=== PATIENT | male | born 1960 | race Caucasian/White ===

== ENCOUNTER 2020-06-24 11:56 | Outpatient (REF) | payer BC, SELFPAY ==
--- NOTE | ~2020-06-24 | XR_ITS ---
EXAMINATION: XR CHEST CLINICAL INFORMATION: History renal mass. COMPARISON: Chest radiographs 06/25/2019, 11/30/2018 TECHNIQUE: Chest is imaged in frontal view and 2 lateral views for a total of 3 views. FINDINGS: The lungs are clear. There is no airspace opacity, mass, pleural reaction, or effusion. The heart is normal in size. The costophrenic sulci are clear. The hilar and mediastinal contours and bony structures are unremarkable. XR/XR chest 2V IMPRESSION: Unremarkable examination.
== END 2020-06-24 11:57 | disposition home or self-care (01) ==
LOC: HO.XRAY 11:56
PROVIDERS: PCP Internal Medicine; Visit Provider Urology
DX: N28.89 Other specified disorders of kidney and ureter (principal)
CPT/HCPCS: 71046

== ENCOUNTER → 2020-07-01 09:32 | Outpatient (BNVA) | payer BC, SELFPAY | PROVIDERS: PCP Internal Medicine; Visit Provider Urology | DX: Z13.89 Encounter for screening for other disorder (principal) ==

== ENCOUNTER 2021-01-27 09:54 | Outpatient (REF) | payer OTHER, SELFPAY ==
--- NOTE | ~2021-01-27 | US_ITS ---
EXAMINATION: US RETROPERITONEAL LIMITED (RENAL ONLY) CLINICAL INFORMATION: Calculus of kidney. COMPARISON: CT abdomen and pelvis 11/29/2019. Renal ultrasound 11/30/2018. Abdominal ultrasound 05/24/2017. TECHNIQUE: Real-time imaging of the kidneys. FINDINGS: RIGHT KIDNEY: 12.3 x 5.2 x 5.5 cm (SAG x AP x TRV). The kidney is normal in size, contour, and echogenicity. Renal cortical thickness is normal. No calculi or focal parenchymal lesions. No hydronephrosis. Redemonstration of an irregular hypoechoic focus within the lower pole of the right kidney measuring 1.7 x 1.3 x 1.4 cm, unchanged when compared to prior examinations and consistent with prior tumor ablation. No new renal parenchymal lesion. LEFT KIDNEY: 12.8 x 6.4 x 5.7 cm (SAG x AP x TRV). The kidney is normal in size, contour, and echogenicity. Renal cortical thickness is normal. No calculi or focal parenchymal lesions. No hydronephrosis. US/US renal BI IMPRESSION: No hydronephrosis or nephrolithiasis. Foci consistent with prior cryoablation redemonstrated at the lower pole of the right kidney, not significantly changed when compared to the prior CT. No new renal parenchymal lesion.
== END 2021-01-27 09:55 | disposition home or self-care (01) ==
LOC: HO.US 09:54
PROVIDERS: PCP Internal Medicine; Visit Provider Urology
DX: C64.9 Malignant neoplasm of unspecified kidney, except renal pelvis (principal); N20.0 Calculus of kidney
CPT/HCPCS: 76775

== ENCOUNTER → 2021-02-20 12:12 | Outpatient (BNVA) | payer OTHER, SELFPAY | PROVIDERS: Visit Provider Urology ==

== ENCOUNTER → 2021-08-27 09:19 | Outpatient (BNVA) | payer OTHER, SELFPAY | PROVIDERS: Visit Provider Urology | DX: Z13.89 Encounter for screening for other disorder (principal) ==

== ENCOUNTER 2022-04-09 14:55 | Outpatient (REF) | payer BC, SELFPAY ==
--- NOTE | ~2022-04-09 | US_ITS ---
EXAMINATION: US RETROPERITONEAL LIMITED (RENAL ONLY) CLINICAL INFORMATION: Malignant neoplasm of unspecified kidney, except renal pelvis. History of cryoablation. COMPARISON: Renal ultrasound 01/27/2021 and 11/30/2018. CT abdomen and pelvis 11/29/2019. TECHNIQUE: Real-time imaging of the kidneys. FINDINGS: RIGHT KIDNEY: 11.6 x 5.9 x 4.4 cm (SAG x AP x TRV). The kidney is normal in size, contour, and echogenicity. Renal cortical thickness is normal. No calculi or focal parenchymal lesions. No hydronephrosis. Hypoechoic area with shadowing in the lower pole, likely area of cryoablation. LEFT KIDNEY: 12.2 x 6.1 x 4.9 cm (SAG x AP x TRV). The kidney is normal in size, contour, and echogenicity. Renal cortical thickness is normal. No calculi or focal parenchymal lesions. No hydronephrosis. US/US renal BI IMPRESSION: 1. Hypoechoic area with shadowing in the lower pole of the right kidney likely area of cryoablation. Similar findings were seen on last ultrasound exam 01/27/2021. 2. The left kidney is unremarkable.
== END 2022-04-09 14:56 | disposition home or self-care (01) ==
LOC: HO.US 14:55
PROVIDERS: PCP Internal Medicine; Visit Provider Urology
DX: C64.9 Malignant neoplasm of unspecified kidney, except renal pelvis (principal)
CPT/HCPCS: 76775

== ENCOUNTER → 2022-05-04 11:04 | Outpatient (BNVA) | payer OTHER, SELFPAY | PROVIDERS: PCP Internal Medicine; Visit Provider Urology | DX: Z13.89 Encounter for screening for other disorder (principal) ==

== ENCOUNTER 2022-12-07 14:04 | Outpatient (AMB) | payer BC, SELFPAY ==
--- NOTE | 2022-12-07 14:05 | MHC.OFFVIS ---
Intake Intake Visit Reasons: MRI- follow up(SET) Intake Note: Patient is present for Telephone MRI Follow up Urology Med: none Antibiotic Allergy: None Blood Thinner: None [facility]acy[facility] Allergies No Known Allergies Allergy (Verified 12/07/22 14:05) HPI HPI Comments History of Present Illness Details Maximiliano PERLA is a very pleasant male. He is a patient of Dr Davis. He is seen for the following urologic conditions. - renal cancer - erectile dysfunction in setting of diabetes Telemedicine Evaluation 15 min Consultation [employer] Marisol Video attempted Five year imaging no evidence of recurrent disease Follow yearly with ultrasound Trial daily tadalafil - has been shown to drop HbA1c by a 0.2-0.3 Erectile dysfunction in setting of diabetes Progressive Declining quality erection Does have spontaneous erections Given associated diabetes would suggest daily tadalafil Comorbidities include diabetes, hypertension, dyslipidemia Renal lesion: Cryotherapy 08/24 Present for re-evaluation in progress for renal cancer The renal mass was diagnosed incidentally, during evaluation for, abdominal pain - 05/26/15. Imaging included 05/26 , a renal ultrasound, showing a solid mass, 1-2 cm in size, on the right 08/24 cryotherapy Prior treatment(s) included 08/24 cryotherapy Staging of initial cancer T1a. 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 Recent labs include 11/24 Cr 1.05 12/26 Cr 1.1, 07/28 1.1 Follow up imaging includes - 11/23 CT non enhancing 3cm scarring area, 11/24 , a renal ultrasound, normal. XR, normal, 06/28 CXR NAD - 11/25 , a CT (computed tomography) scan of the abdomen/pelvis - contrast no enhancement on scarring on bottom of right kidney - 06/29? chest x-ray normal, 02/26 renal ultrasound scarring of right kidney, - 04/29 renal ultrasound scarring consistent with cryotherapy - 11/28 MRI with contrast no evidence of enhancement Planned therapeutic plan- yearly imaging [facility] Medical History Malignant neoplasm of right kidney Renal mass Review of Systems Const All systems reviewed & are unremarkable except as noted in HPI and below Reports no additional complaints Resp Reports no additional complaints GI Reports no additional complaints Reports as per HPI Musc Reports no additional complaints Physical Exam Telemedicine evaluation Appropriate responses Regular breathing rate and rhythm HEENT Head: Yes normal to inspection Ears: hearing grossly normal bilaterally Eyes General: appearance normal, both eyes and all related structures Neck Neck: Yes normal visual inspection Chest Chest palpation & inspection: normal inspection of the chest Resp Effort & Inspection: normal respiratory effort and able to speak in complete sentences Assessment & Plan Assessment & Plan (1) Renal cancer: Comment: 2018 cryotherapy Code(s): C64.9 - Malignant neoplasm of unspecified kidney, except renal pelvis (2) Erectile dysfunction associated with type 2 diabetes mellitus: Code(s): E11.69 - Type 2 diabetes mellitus with other specified complication; N52.1 - Erectile dysfunction due to diseases classified elsewhere Plan Daily tadalafil Medications: New tadalafil 5 mg PO DAILY 90 days 90 tabs 1RF sexual activity E11.69 - Type 2 diabetes mellitus with other specified complication, N52.1 - Erectile dysfunction due to diseases classified elsewhere Patient Instructions: Imaging studies, laboratory and physical exam results were discussed and reviewed in detail. No major barriers to patient understanding were identified. An opportunity to ask questions regarding the treatment plan was provided. All questions were answered. The patient expressed understanding and agreement with the above treatment plan. The patient is aware they should contact our office by phone for worsening of their current condition or the appearance of new urologic symptoms. Compliance is encouraged with any medications and followup testing that is ordered. It is a privilege to participate in the urologic care of your patient. If you have any questions or concerns regarding treatment for the above conditions, or other urologic issues, please do not hesitate to contact me. The office telephone contact is [phone]. This note is constructed using voice recognition software. While every effort has been made to ensure accuracy teachers aide errors may have been included. Yours sincerely, Dr Mathieu Powell MD, [facility] - Urology Providers of Expert, Compassionate Care for the Genitourinary System Telehealth Telehealth Location of provider rendering services: practice address Location of patient: address on file Patient Identification confirmed using: Name, : Yes Telehealth method: video Patient verbally consented to treatment: Yes Patient verbally consented to billing insurance company: Yes Patient informed of any privacy concerns related to visit: Yes Coding Level of Care Code Tele Est Pt Level 4 (15219) Diagnoses Renal cancer C64.9 Erectile dysfunction associated with type 2 diabetes mellitus E11.69; N52.1
== END 2022-12-07 14:33 | disposition home or self-care (01) ==
LOC: HO.HUSH 14:04
PROVIDERS: PCP Internal Medicine; Visit Provider Urology
DX: E11.69 Type 2 diabetes mellitus with other specified complication (principal); N52.1 Erectile dysfunction due to diseases classified elsewhere; Z85.528 Personal history of other malignant neoplasm of kidney
CPT/HCPCS: 99214

== ENCOUNTER → 2022-12-07 14:04 | Outpatient (BNVA) | payer BC, SELFPAY | PROVIDERS: PCP Internal Medicine; Visit Provider Urology ==

== ENCOUNTER 2023-06-09 10:51 | Outpatient (AMB) | payer OTHER, SELFPAY ==
--- NOTE | 2023-06-09 10:51 | A.OFFVIS_ITS ---
Intake Intake Visit Reasons: 6M Med Review(Tadalafil) Intake Note: Patient presents today for a follow-up Meds- Tadalafil Allergies to Antibiotic- No Known Allergies Blood Thinner- None Billboard Poster Required: No Allergies No Known Allergies Allergy (Verified 06/09/23 10:53) HPI HPI Comments History of Present Illness Details Maximiliano PERLA is a very pleasant male. He is a patient of Dr Davis. He is seen for the following urologic conditions. - renal cancer - erectile dysfunction in setting of ayesha migel Telemedicine Evaluation 15 min Consultation [employer] Mar[employer] Video attempted Has partial response to 5 mg daily tadalafil. At 20 mg on demand. Discussed dose escalation for future visits. Three-month follow-up tele Erectile dysfunction in setting of diabetes Progressive Declining quality erection Does have spontaneous erections Given associated diabetes daily tadalafil Comorbidities include diabetes, hypertension, dyslipidemia Renal lesion: Cryotherapy 08/24 Present for re-evaluation in progress for renal cancer The renal mass was diagnosed incidentally, during evaluation for, abdominal pain - 05/26/15. Imaging included 05/26 , a renal ultrasound, showing a solid mass, 1-2 cm in size, on the right 08/24 cryotherapy Prior treatment(s) included 08/24 cryotherapy Staging of initial cancer T1a. 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 Recent labs include 11/24 Cr 1.05 12/26 Cr 1.1, 07/28 1.1 Follow up imaging includes - 11/23 CT non enhancing 3cm scarring area, 11/24 , a renal ultrasound, normal. XR, normal, 06/28 CXR NAD - 11/25 , a CT (computed tomography) scan of the abdomen/pelvis - contrast no enhancement on scarring on bottom of right kidney - 06/29? chest x-ray normal, 02/26 renal ultrasound scarring of right kidney, - 04/29 renal ultrasound scarring consistent with cryotherapy - 11/28 MRI with contrast no evidence of enhancement Planned therapeutic plan- yearly imaging [facility] Medical History Malignant neoplasm of right kidney Renal mass Review of Systems Const All systems reviewed & are unremarkable except as noted in HPI and below Reports no additional complaints Resp Reports no additional complaints GI Reports no additional complaints Reports as per HPI Musc Reports no additional complaints Physical Exam Telemedicine evaluation Appropriate responses Regular breathing rate and rhythm HEENT Head: Yes normal to inspection Ears: hearing grossly normal bilaterally Eyes General: appearance normal, both eyes and all related structures Neck Neck: Yes normal visual inspection Chest Chest palpation & inspection: normal inspection of the chest Resp Effort & Inspection: normal respiratory effort and able to speak in complete sentences Assessment & Plan Assessment & Plan (1) Erectile dysfunction associated with type 2 diabetes mellitus: Code(s): E11.69 - Type 2 diabetes mellitus with other specified complication; N52.1 - Erectile dysfunction due to diseases classified elsewhere (2) Renal cancer: Comment: 2018 cryotherapy Code(s): C64.9 - Malignant neoplasm of unspecified kidney, except renal pelvis Plan Three-month follow-up tele Add on demand tadalafil Medications: New tadalafil On demand medication take 60 minutes before intended activity 20 mg PO ONCE 30 days PRN 30 tabs 0RF sexual activity E11.69 - Type 2 diabetes mellitus with other specified complication, N52.1 - Erectile dysfunction due to diseases classified elsewhere Refilled tadalafil 5 mg PO DAILY 90 days 90 tabs 1RF sexual activity E11.69 - Type 2 diabetes mellitus with other specified complication, N52.1 - Erectile dysfunction due to diseases classified elsewhere Telehealth Telehealth Location of provider rendering services: practice address Location of patient: address on file Patient Identification confirmed using: Name, : Yes Telehealth method: voice only Patient verbally consented to treatment: Yes Patient verbally consented to billing insurance company: Yes Patient informed of any privacy concerns related to visit: Yes Coding Level of Care Code Tele Est Pt Level 4 (09049) Diagnoses Erectile dysfunction associated with type 2 diabetes mellitus E11.69; N52.1 Renal cancer C64.9
== END 2023-06-09 12:20 | disposition home or self-care (01) ==
LOC: HO.HUSH 10:51
PROVIDERS: PCP Internal Medicine; Visit Provider Urology
DX: E11.69 Type 2 diabetes mellitus with other specified complication (principal); N52.1 Erectile dysfunction due to diseases classified elsewhere; C64.9 Malignant neoplasm of unspecified kidney, except renal pelvis
CPT/HCPCS: 99214

== ENCOUNTER → 2023-06-09 10:51 | Outpatient (BNVA) | payer OTHER, SELFPAY | PROVIDERS: PCP Internal Medicine; Visit Provider Urology ==

== ENCOUNTER 2023-09-06 11:17 | Outpatient (AMB) | payer OTHER, SELFPAY ==
--- NOTE | 2023-09-06 11:18 | A.OFFVIS_ITS ---
Intake Visit Reasons: Med Review(Tadalafil) Intake Note: Patient is Present for Telephone Follow Up Med Review Urology Med: Tadalafil Antibiotic Allergy:None Blood Thinner: None Allergies No Known Allergies Allergy (Verified 09/06/23 11:20) Medication List - Last Reconciled 09/06/23 by Mathieu Powell MD atorvastatin 20 mg PO DAILY codeine-guaifenesin 10-100 mg/5 mL 5 - 10 mL PO Q4-6H PRN lisinopril 5 mg PO DAILY metformin mg PO metoprolol succinate ER 50 mg PO DAILY omeprazole 20 mg PO DAILY tadalafil 20 mg PO ONCE PRN 30 days tadalafil 5 mg (1/2 x 10 mg) PO DAILY 90 days valsartan 40 mg PO DAILY HPI Comments Details: Maximiliano PERLA is a very pleasant male. He is a patient of Dr Davis. He is seen for the following urologic conditions. - renal cancer - erectile dysfunction in setting of diabetes Telemedicine Evaluation 15 min Consultation [employer] Video attempted Has had increasing response to 5 mg daily with 20 mg on demand Will increase to 10 mg daily with 20mg on demand Three-month follow-up tele Erectile dysfunction in setting of diabetes Progressive Declining quality erection Does have spontaneous erections Given associated diabetes daily tadalafil Comorbidities include diabetes, hypertension, dyslipidemia Renal lesion: Cryotherapy 08/24 The renal mass was diagnosed incidentally, during evaluation for, abdominal pain - 05/26/15. Imaging included 05/26 , a renal ultrasound, showing a solid mass, 1-2 cm in size, on the right 08/24 cryotherapy Prior treatment(s) included 08/24 cryotherapy Staging of initial cancer T1a. 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 Recent labs include 11/24 Cr 1.05 12/26 Cr 1.1, 07/28 1.1 Follow up imaging includes - 11/23 CT non enhancing 3cm scarring area, 11/24 , a renal ultrasound, normal. XR, normal, 06/28 CXR NAD - 11/25 , a CT (computed tomography) scan of the abdomen/pelvis - contrast no enhancement on scarring on bottom of right kidney - 06/29? chest x-ray normal, 02/26 renal ultrasound scarring of right kidney, - 04/29 renal ultrasound scarring consistent with cryotherapy - 11/28 MRI with contrast no evidence of enhancement Planned therapeutic plan- yearly imaging [facility] Medical History Malignant neoplasm of right kidney Renal mass Telehealth Telehealth Telehealth Platform: [employer] Location of provider rendering services: practice address Location of patient: address on file Patient Identification confirmed using: Name, : Yes Telehealth method: video Patient verbally consented to treatment: Yes Patient verbally consented to billing insurance company: Yes Patient informed of any privacy concerns related to visit: Yes Minutes spent on Phone/Video with Pt.: 15 Assessment & Plan Assessment & Plan (1) Erectile dysfunction associated with type 2 diabetes mellitus: Code(s): E11.69 - Type 2 diabetes mellitus with other specified complication; N52.1 - Erectile dysfunction due to diseases classified elsewhere Category: Medical Plan Increased dose from 5 mg daily to 10 mg daily and remain with 20 mg on demand Medications: Changed From tadalafil 5 mg (1/2 x 10 mg) PO DAILY 90 days 90 tabs 1RF sexual activity E11.69 - Type 2 diabetes mellitus with other specified complication, N52.1 - Erectile dysfunction due to diseases classified elsewhere To tadalafil 10 mg PO DAILY 90 days 90 tabs 1RF sexual activity E11.69 - Type 2 diabetes mellitus with other specified complication, N52.1 - Erectile dysfunction due to diseases classified elsewhere From tadalafil 5 mg PO DAILY 90 days 90 tabs 1RF sexual activity E11.69 - Type 2 diabetes mellitus with other specified complication, N52.1 - Erectile dysfunction due to diseases classified elsewhere To tadalafil 5 mg (1/2 x 10 mg) PO DAILY 90 days 90 tabs 1RF sexual activity E11.69 - Type 2 diabetes mellitus with other specified complication, N52.1 - Erectile dysfunction due to diseases classified elsewhere Patient Instructions: Imaging studies, laboratory and physical exam results were discussed and reviewed in detail. No major barriers to patient understanding were identified. An opportunity to ask questions regarding the treatment plan was provided. All questions were answered. The patient expressed understanding and agreement with the above treatment plan. The patient is aware they should contact our office by phone for worsening of their current condition or the appearance of new urologic symptoms. Compliance is encouraged with any medications and followup testing that is ordered. It is a privilege to participate in the urologic care of your patient. If you have any questions or concerns regarding treatment for the above conditions, or other urologic issues, please do not hesitate to contact me. The office telephone contact is [phone]. This note is constructed using voice recognition software. While every effort has been made to ensure accuracy paint department supervisor errors may have been included. Yours sincerely, Dr Mathieu Powell MD, [facility] - Urology Providers of Expert, Compassionate Care for the Genitourinary System Coding Level of Care Code Tele Est Pt Level 4 (22358) Diagnoses Erectile dysfunction associated with type 2 diabetes mellitus E11.69; N52.1
== END 2023-09-06 12:56 | disposition home or self-care (01) ==
LOC: HO.HUSH 11:17
PROVIDERS: PCP Internal Medicine; Visit Provider Urology
DX: E11.69 Type 2 diabetes mellitus with other specified complication (principal); N52.1 Erectile dysfunction due to diseases classified elsewhere
CPT/HCPCS: 99213

== ENCOUNTER → 2023-09-06 11:17 | Outpatient (BNVA) | payer OTHER, SELFPAY | PROVIDERS: PCP Internal Medicine; Visit Provider Urology ==

== ENCOUNTER 2023-12-07 11:33 | Outpatient (AMB) | payer OTHER, SELFPAY ==
--- NOTE | 2023-12-07 11:28 | A.OFFVIS_ITS ---
Intake Visit Reasons: 3M Follow Up-Med Review Intake Note: Patient is Present for Telephone Follow Up For med review Urology Med: Tadalafil Antibiotic Allergy:None Blood Thinner:none Allergies No Known Allergies Allergy (Verified 12/07/23 11:35) Medication List - Last Reconciled 12/07/23 by Mathieu Powell MD atorvastatin 20 mg PO DAILY codeine-guaifenesin 10-100 mg/5 mL 5 - 10 mL PO Q4-6H PRN lisinopril 5 mg PO DAILY metformin mg PO metoprolol succinate ER 50 mg PO DAILY omeprazole 20 mg PO DAILY tadalafil 10 mg PO DAILY 90 days tadalafil 20 mg PO ONCE PRN 30 days valsartan 40 mg PO DAILY HPI Comments Details: Maximiliano PERLA is a very pleasant male. He is a patient of Dr Davis. He is seen for the following urologic conditions. - renal cancer - erectile dysfunction in setting of diabetes Telemedicine Evaluation 15 min Consultation [employer] Video attempted Good response to 10 mg daily with 20 mg on demand Would like to continue Six month follow-up Erectile dysfunction in setting of diabetes Progressive Declining quality erection Does have spontaneous erections Given associated diabetes daily tadalafil Comorbidities include diabetes, hypertension, dyslipidemia Renal lesion: Cryotherapy 08/24 The renal mass was diagnosed incidentally, during evaluation for, abdominal pain - 05/26/15. Imaging included 05/26 , a renal ultrasound, showing a solid mass, 1-2 cm in size, on the right 08/24 cryotherapy Prior treatment(s) included 08/24 cryotherapy Staging of initial cancer T1a. 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 Recent labs include 11/24 Cr 1.05 12/26 Cr 1.1, 07/28 1.1 Follow up imaging includes - 11/23 CT non enhancing 3cm scarring area, 11/24 , a renal ultrasound, normal. XR, normal, 06/28 CXR NAD - 11/25 , a CT (computed tomography) scan of the abdomen/pelvis - contrast no enhancement on scarring on bottom of right kidney - 06/29? chest x-ray normal, 02/26 renal ultrasound scarring of right kidney, - 04/29 renal ultrasound scarring consistent with cryotherapy - 11/28 MRI with contrast no evidence of enhancement Planned therapeutic plan- yearly imaging [facility] Medical History Malignant neoplasm of right kidney Renal mass Review of Systems Const All systems reviewed & are unremarkable except as noted in HPI and below Reports no additional complaints Resp Reports no additional complaints GI Reports no additional complaints Reports as per HPI Musc Reports no additional complaints Physical Exam Telemedicine evaluation Appropriate responses Regular breathing rate and rhythm HEENT Head: Yes normal to inspection Ears: hearing grossly normal bilaterally Eyes General: appearance normal, both eyes and all related structures Neck Neck: Yes normal visual inspection Chest Chest palpation & inspection: normal inspection of the chest Resp Effort & Inspection: normal respiratory effort and able to speak in complete sentences Telehealth Telehealth Telehealth Platform: [employer] Location of provider rendering services: practice address Location of patient: address on file Patient Identification confirmed using: Name, : Yes Telehealth method: video Patient verbally consented to treatment: Yes Patient verbally consented to billing insurance company: Yes Patient informed of any privacy concerns related to visit: Yes Minutes spent on Phone/Video with Pt.: 15 Assessment & Plan Assessment & Plan (1) Erectile dysfunction associated with type 2 diabetes mellitus: Code(s): E11.69 - Type 2 diabetes mellitus with other specified complication; N52.1 - Erectile dysfunction due to diseases classified elsewhere Category: Medical (2) Renal cancer: Comment: 2018 cryotherapy Code(s): C64.9 - Malignant neoplasm of unspecified kidney, except renal pelvis Category: Medical Plan Six month follow-up renal ultrasound Orders: Orders US renal BI 6 Months C64.9 - Malignant neoplasm of unspecified kidney, except renal pelvis Medications: Refilled tadalafil 10 mg PO DAILY 90 days 90 tabs 1RF sexual activity E11.69 - Type 2 diabetes mellitus with other specified complication, N52.1 - Erectile dysfunction due to diseases classified elsewhere Patient Instructions: Imaging studies, laboratory and physical exam results were discussed and reviewed in detail. No major barriers to patient understanding were identified. An opportunity to ask questions regarding the treatment plan was provided. All q uestions were answered. The patient expressed understanding and agreement with the above treatment plan. The patient is aware they should contact our office by phone for worsening of their current condition or the appearance of new urologic symptoms. Compliance is encouraged with any medications and followup testing that is ordered. It is a privilege to participate in the urologic care of your patient. If you have any questions or concerns regarding treatment for the above conditions, or other urologic issues, please do not hesitate to contact me. The office telephone contact is [phone]. This note is constructed using voice recognition software. While every effort has been made to ensure accuracy director intelligence analysis programs errors may have been included. Yours sincerely, Dr Mathieu Powell MD, [facility] - Urology Providers of Expert, Compassionate Care for the Genitourinary System Coding Level of Care Code Tele Est Pt Level 3 (27610) Diagnoses Erectile dysfunction associated with type 2 diabetes mellitus E11.69; N52.1 Renal cancer C64.9
== END 2023-12-07 11:54 | disposition home or self-care (01) ==
LOC: HO.HUSH 11:33
PROVIDERS: PCP Internal Medicine; Visit Provider Urology
DX: E11.69 Type 2 diabetes mellitus with other specified complication (principal); N52.1 Erectile dysfunction due to diseases classified elsewhere; C64.9 Malignant neoplasm of unspecified kidney, except renal pelvis
CPT/HCPCS: 99213

== ENCOUNTER → 2023-12-07 11:33 | Outpatient (BNVA) | payer OTHER, SELFPAY | PROVIDERS: PCP Internal Medicine; Visit Provider Urology ==

== ENCOUNTER 2024-05-23 11:14 | Outpatient (REF) | payer OTHER, SELFPAY ==
--- NOTE | ~2024-05-23 | US_ITS ---
EXAMINATION: US RETROPERITONEAL LIMITED (RENAL ONLY) CLINICAL INFORMATION: Malignant neoplasm of right kidney, status post cryoablation. COMPARISON: 04/09/2022, 01/27/2021. TECHNIQUE: Real-time imaging of the kidneys. FINDINGS: RIGHT KIDNEY: 11.7 x 6.2 x 5.3 cm (SAG x AP x TRV). The kidney is normal in size, contour, and echogenicity. Renal cortical thickness is normal. No calculi or focal parenchymal lesions. No hydronephrosis. Stable shadowing in the lower pole, in the region of prior ablation with a similar appearance to prior exams. LEFT KIDNEY: 12.1 x 6.1 x 4.8 cm (SAG x AP x TRV). The kidney is normal in size, contour, and echogenicity. Renal cortical thickness is normal. No calculi or focal parenchymal lesions. No hydronephrosis. US/US renal BI IMPRESSION: Stable examination. Area of shadowing in lower pole right kidney appears similar, in the region of cryoablation. Electronically signed by: Jimenez Almanza MD 05/24/2024 08:28 AM [facility]
== END 2024-05-23 11:15 | disposition home or self-care (01) ==
LOC: HO.US 11:14
PROVIDERS: PCP Internal Medicine; Visit Provider Urology
DX: C64.9 Malignant neoplasm of unspecified kidney, except renal pelvis (principal)
CPT/HCPCS: 76775

== ENCOUNTER → 2024-05-23 11:15 | Outpatient (BNV) | payer OTHER, SELFPAY | PROVIDERS: PCP Internal Medicine; Visit Provider Radiology Diagnostic Radiology | DX: C64.1 Malignant neoplasm of right kidney, except renal pelvis (principal) | CPT/HCPCS: 76775 ==

== ENCOUNTER 2024-06-07 10:24 | Outpatient (AMB) | payer OTHER, SELFPAY ==
--- NOTE | 2024-06-07 10:28 | MHC.OFFVIS ---
Intake Visit Reasons: 6m/US(set) Intake Note: Patient is present for 6M/US Urology Medication:TADALAFIL Antibiotic Allergy:NONE Blood Thinner:NONE Spike Driver Required: No Allergies No Known Allergies Allergy (Verified 06/07/24 10:29) HPI Comments Details: Maximiliano PERLA is a very pleasant male. He is a patient of Dr Davis. He is seen for the following urologic conditions. - renal cancer - erectile dysfunction in setting of diabetes Six-month follow-up Continued good response to 10 mg daily with 20 mg on demand Imaging stable Erectile dysfunction in setting of diabetes Progressive Declining quality erection Does have spontaneous erections Given associated diabetes daily tadalafil Comorbidities include diabetes, hypertension, dyslipidemia Renal lesion: Cryotherapy 08/24 The renal mass was diagnosed incidentally, during evaluation for, abdominal pain - 05/26/15. Imaging included 05/26 , a renal ultrasound, showing a solid mass, 1-2 cm in size, on the right 08/24 cryotherapy Prior treatment(s) included 08/24 cryotherapy Staging of initial cancer T1a. 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 Recent labs include 11/24 Cr 1.05 12/26 Cr 1.1, 07/28 1.1 Follow up imaging includes - 11/23 CT non enhancing 3cm scarring area, 11/24 , a renal ultrasound, normal. XR, normal, 06/28 CXR NAD - 11/25 , a CT (computed tomography) scan of the abdomen/pelvis - contrast no enhancement on scarring on bottom of right kidney - 06/29? chest x-ray normal, 02/26 renal ultrasound scarring of right kidney, - 04/29 renal ultrasound scarring consistent with cryotherapy - 11/28 MRI with contrast no evidence of enhancement Planned therapeutic plan- yearly imaging [facility] Medical History Malignant neoplasm of right kidney Renal mass Review of Systems Const Denies chills and Denies fever(s) Card Reports no additional complaints and Denies syncope Resp Denies cough GI Denies abdominal pain and Denies heartburn Reports as per HPI and Denies change in libido Neuro Denies syncope Psych Denies change in libido Endo Denies change in libido Physical Exam Const General: cooperative, healthy appearing, comfortable and no acute distress Orientation/consciousness: patient oriented x3 HEENT Face and sinus: Yes normal facial exam Mouth: moist mucous membranes Neck Neck: Yes normal visual inspection, Yes full ROM and Yes trachea midline Chest Chest palpation & inspection: normal inspection of the chest Resp Effort & Inspection: normal respiratory effort, able to speak in complete sentences and no respiratory distress GI Inspection: Yes normal to inspection Back/Spine/Pelvis Cervical Spine: normal cervical lordosis Thoracic/Lumbar Spine: thoracic and lumbar spine normal to inspection Skin General skin exam: no rashes or lesions noted Neuro General: patient oriented x3, gait normal, tone normal and moves all extremities Extrem General: Yes normal to inspection and Yes capillary refill normal Assessment & Plan Assessment & Plan (1) Renal cancer: Comment: 2018 cryotherapy Code(s): C64.9 - Malignant neoplasm of unspecified kidney, except renal pelvis Category: Medical (2) Erectile dysfunction associated with type 2 diabetes mellitus: Code(s): E11.69 - Type 2 diabetes mellitus with other specified complication; N52.1 - Erectile dysfunction due to diseases classified elsewhere Category: Medical Plan Six-month follow-up PSA Orders: Orders Prostate Specific Antigen 6 Months E11.69 - Type 2 diabetes mellitus with other specified complication, N52.1 - Erectile dysfunction due to diseases classified elsewhere Patient Instructions: This note is constructed using voice recognition software. While every effort has been made to ensure accuracy instructional media services technician errors may have been included. Imaging studies, laboratory and physical exam results were discussed and reviewed in detail. No major barriers to patient understanding were identified. An opportunity to ask questions regarding the treatment plan was provided. All questions were answered. The patient expressed understanding and agreement with the above treatment plan. The patient is aware they should contact our office by phone for worsening of their current condition or the appearance of new urologic symptoms. Compliance is encouraged with any medications and followup testing that is ordered. It is a privilege to participate in the urologic care of your patient. If you have any questions or concerns regarding treatment for the above conditions, or other urologic issues, please do not hesitate to contact me. The office telephone contact is [phone]. Sincerely, Dr Mathieu Powell MD, [facility] - Urology Compassionate Specialist Care for the Genitourinary System Coding Level of Care Code Est Pt Level 3 (89683) Diagnoses Renal cancer C64.9 Erectile dysfunction associated with type 2 diabetes mellitus E11.69; N52.1
--- OUTSIDE RECORDS SUMMARY | 2024-06-07 13:52 | XMS_ITS | Clinical Summary ---
Author Organization [facility] Address [address] [place] [address] Care Team Providers Care Medical Doctor Nuclear Medicine Name Role Phone Unavailable Primary Care Provider Unavailabl e Social History Tobacco Use Types Packs/Day Years Used Date Smoking Tobacco: Never Assessed Sex and Gender Information Value Date Recorded Sex Assigned at Not on file Legal Sex Male 5:30 PM EDT Gender Identity Not on file Sexual Orientation Not on file Plan of Treatment Health Maintenance Due Date Last Done Comments Hepatitis C Screening 1960 DTaP/Tdap/Td (1 - Tdap) 10/21/1977 Pneumococcal 50+ years (1 of 1 - PCV) 10/21/2009 Zoster (Shingrix) (1 of 2) 10/21/2009 COVID-19 Vaccine ( - 2023-2 5 season) 2024 Influenza (#1) 2024 RSV (1 - 1-dose 75+ series) 10/21/2034 HPV Vaccine Aged Out No longer eligi ble based on patient's age to complete this topic Hep A Aged Out No longer eligi ble based on patient's age to complete this topic Hep B Aged Out No longer eligi ble based on patient's age to complete this topic Hib Aged Out No longer eligi ble based on patient's age to complete this topic Meningococcal ACWY Aged Out No longer eligible based on patient's age to complete this topic Zoster (Zostavax) Discontinued
--- OUTSIDE RECORDS SUMMARY | 2024-06-07 13:53 | XMS_ITS | Clinical Summary ---
Author Organization [facility] Address [address] [place] [address] Care Team Providers Care Health Underwriter Name Role Phone Josemanuel Davis MD Primary Care Provider [phone] Allergies Active Allergy Reactions Criticality Noted Date Comments Apple 01/25/2022 Grapefruit Extract 01/25/2022 Grapefruit fruit Tree Pollen-Black [place] 01/25/2022 WALNUTS Medications Medication Sig Dispensed Refills Start Date End Date Status aspirin 81 mg EC tablet Take 81 mg by mouth daily. Active atorvastatin (LIPITOR) 20 mg tablet Take 20 mg by mouth daily. Active cholecalciferol (VITAMIN D-3) 25 mcg (1,000 unit) capsule Take by mouth daily. Active metFORMIN (GLUCOPHAGE) 500 mg tablet Take 2 Tablets by mouth 2 times daily (with meals). Active metoprolol succinate (TOPROL-XL) 50 mg 24 hr tablet Take 50 mg by mouth daily. Active omeprazole (PriLOSEC) [address] capsule Take 20 mg by mouth daily. Active tadalafiL (CIALIS) 10 mg tablet Take 1 Tablet by mouth as needed. Active valsartan (DIOVAN) 40 mg tablet Take 40 mg by mouth daily. Active Active Problems Problem Noted Date Diagnosed Date Class 1 obesity with body ma ss index (BMI) of 33.0 to 33.9 in adult 03/05/2024 Rectus diastasis 01/24/2024 Ventral hernia without obstruction or gangrene 0 01/24/2024 Snoring 01/25/2022 Overview (03/05/2024): Last Assessment & Plan: He does snore he could have sleep apnea I discussed with him about proceeding with sleep test. I did discuss some, possible long-term effects of untreated sleep apnea. He is agreeable I did place an order for this. Sinus tachycardia 11/25/2021 Overview (03/05/2024): Last Assessment & Plan: The exact etiology of his tachycardia is not clear. Not clear if this was sinus tach or although we did have an ECG done with Dr. Davis and his heart rate was 106 and otherwise was normal. He did have a Holter monitor done.This demonstrated that the average heart rate over 24 hours was 89 bpm with a rate range of 57 to 135 bpm. No ventricular ectopy was noted. Supraventricular ectopy noted consisting of 2 atrial pairs and 45 isolated premature atrial beats. Total time in sinus tachycardia was 6 hours and 24 minutes. He did have a stress test in May 2020 where he exercised for over 6 minutes to greater than 100% of his mph. That time he had no chest pain or ECG changes consistent with ischemia. It is not clear as the etiology of the sinus tachycardia. His hemoglobin is normal. He does not have congestive failure. He did have an echocardiogram with a normal LV systolic function and normal diastolic function no significant valvular disease. TSH was normal. I do not believe he has a pheochromocytoma. He drinks 1 cup of coffee does not take any medications known to cause tachycardia although he states omeprazole was reported to have a tachycardia. He does snore and he could have sleep apnea. This point the heart rate is doing better and he is on the current dose of his metoprolol I would continue with this. I did tell though if he started having exertional symptoms, I described to him to call. I did tell if he any discomforts in his chest that lasts for 15 minutes to call 911. Encounters Date Type Department Care Team Description 04/13/2024 11:00 AM EST Office Visit General Surgery - [address] [place] [address] Salazar Mcelroy MD Ventral hernia without obstruction or gangrene (Primary Dx) from Last 3 Months Surgical History Surgery Date Site/Laterality Comments HERNIA REPAIR PROCEDURE: [place] REPAIR FIRST ABDOMINAL WALL HERNIA Family History Medical History Relation Name Comments Other: afib Father Other: mitral valve clip Father Other: afib Mother Relation Name Status Comments Father Mother Social History Tobacco Use Types Packs/Day Years Used Date Smoking Tobacco: Never Smokeless Tobacco: Never Alcohol Use Standard Drinks/Week Comments Yes 0 (1 standard drink = 0.6 oz pur e alcohol) Sex and Gender Information Value Date Recorded Sex Assigned at Not on file Gender Identity Not on file Sexual Orientation Not on file Job Start Date Occupation Industry Not on file Not on file Not on file Obstetrics History Last Filed Vital Signs Vital Sign Reading Time Taken Comments Blood Pressure 109/71 04/13/2024 11:14 AM EST Pulse 79 04/13/2024 11:14 AM EST Temperature - - Respiratory Rate - - Oxygen Saturation - - Inhaled Oxygen Concentration - - Weight 99.6 kg (219 lb 8 oz) 04/13/2024 11:14 AM EST Height 172.7 cm (5' 8 ) 04/13/2024 11:14 AM EST Body Mass Index 33.37 04/13/2024 11:14 AM EST Plan of Treatment Health Maintenance Due Date Last Done Comments Cholesterol Screening (Lipid Panel) 04/18/2022 Colorectal Cancer Screening: Colonoscopy 04/18/2022 Depression Screening 04/18/2022 HIV Screening 04/18/2022 Hepatitis C Screening 04/18/2022 Social Influencers of Health Screening 04/18/2022 COVID-19 Vaccine ( season) 2024 01/28/2022, 10/15/2021, 02/25/2021, Additional history exists DTaP,Tdap,and Td Vaccines (2 - Td or Tdap) 03/17/2034 03/17/2024 Zoster Vaccines Completed 06/08/2018, 03/10/2018 RSV Immunization Patients 60+ Years Old Completed 03/15/2023 Influenza Vaccine Completed 03/08/2024, , 03/06/2022, Additional history exists HIB Vaccines Aged Out No longer eligi ble based on patient's age to complete this topic HPV Vaccines Aged Out No longer eligi ble based on patient's age to complete this topic Hepatitis A Vaccines Aged Out No long er eligible based on patient's age to complete this topic Hepatitis B Vaccines Aged Out No long er eligible based on patient's age to complete this topic IPV Vaccines Aged Out No longer eligi ble based on patient's age to complete this topic MMR Vaccines Aged Out No longer eligi ble based on patient's age to complete this topic Meningococcal ACWY Vaccine Aged Out N o longer eligible based on patient's age to complete this topic Pneumococcal Vaccine: Pediatrics (0 to 5 Years) and At-Risk Patients (6 to 64 Years) Aged Out No longer eligible based on patient's age to complete this topic RSV Immunization Patients Under 20 months Aged Out No longer eligible based on patient's age to complete this topic Varicella Vaccines Aged Out No longer eligible based on patient's age to complete this topic Care Teams Health Underwriter Relationship Specialty Start Date End Date Josemanuel Davis MD [address] [place] [id number] PCP - General Internal Medicine 04/11/24
== END 2024-06-07 11:19 | disposition home or self-care (01) ==
LOC: HO.HUSH 10:24
PROVIDERS: PCP Internal Medicine; Visit Provider Urology
DX: C64.9 Malignant neoplasm of unspecified kidney, except renal pelvis (principal); E11.69 Type 2 diabetes mellitus with other specified complication; N52.1 Erectile dysfunction due to diseases classified elsewhere
CPT/HCPCS: 99213

== ENCOUNTER → 2024-06-07 10:24 | Outpatient (BNVA) | payer OTHER, SELFPAY | PROVIDERS: PCP Internal Medicine; Visit Provider Urology | DX: E11.69 Type 2 diabetes mellitus with other specified complication (principal); N52.1 Erectile dysfunction due to diseases classified elsewhere; C64.9 Malignant neoplasm of unspecified kidney, except renal pelvis | CPT/HCPCS: 99212 ==

== ENCOUNTER 2024-11-22 09:27 | Outpatient (REF) | payer MEDICARE, SELFPAY ==
--- OUTSIDE RECORDS SUMMARY | 2024-11-22 09:47 | XMS_ITS | Clinical Summary ---
Author Organization [facility] Address [address] [place] [address] Care Team Providers Care Medical Technologist Name Role Phone Unavailable Primary Care Provider [...] - 2023-2 5 season) 2024 Influenza (#1) 2025 RSV (1 - 1-dose 75+ series) 10/21/2034 Abdominal Aorta Imaging Discontinued HPV Vaccine Aged Out No longer eligi [...]
--- OUTSIDE RECORDS SUMMARY | 2024-11-22 09:47 | XMS_ITS | Clinical Summary ---
Author Organization [facility] Address [address] [place] [address] Care Team Providers Care Acidizer Water Well Name Role Phone Josemanuel Davis MD Primary Care Provider Allergies Active Allergy Reactions Criticality Noted Date Comments Apple 01/25/2022 Grapefruit Extract 01/25/2022 Grapefruit fruit Tree Pollen-Black [place] 01/25/2022 WALNUTS Medications aspirin 81 mg EC tablet Take 81 [...] lasts for 15 minutes to call 911. Surgical History Surgery Date Site/Laterality Comments HERNIA REPAIR PROCEDURE: [place] REPAIR FIRST ABDOMINAL WALL HERNIA Family History [...] at Not on file Legal Sex Male 6:31 PM EST Gender Identity Not on file Sexual Orientation Not on file Obstetrics History Last Filed [...] Health Maintenance Due Date Last Done Comments Pneumococcal Vaccine: 50+ Years (1 of 1 - PCV) 10/21/2009 Cholesterol Screening (Lipid Panel) 04/18/2022 Colorectal Cancer Screening: Colonoscopy 04/18/2022 Depression Screening 04/18/2022 Hepatitis C Screening 04/18/2022 Social Influencers of Health Screening 04/18/2022 COVID-19 Vaccine ( season) 2024 01/28/2022, 10/15/2021, 02/25/2021, Additional history exists Falls Risk Assessment 10/21/2024 Influenza Vaccine (#1) 2025 , 03/15/2023, 03/06/2022, Additional history exists DTaP,Tdap,and Td Vaccines (2 - Td or Tdap) 03/17/2034 03/17/2024 Zoster Vaccines Completed 06/08/2018, 03/10/2018 RSV Immunization Adult Patients Completed 03/15/2023 HIB Vaccines Aged Out No longer eligi [...] patient's age to complete this topic Meningococcal B Vaccine Aged Out No l onger eligible based on patient's age to complete this topic RSV Immunization Patients Under 20 months Aged Out No longer eligible based on patient's age to complete this topic Varicella Vaccines Aged Out No longer eligible based on patient's age to complete this topic Insurance [facility] Care Teams Acidizer Water Well Relationship Specialty Start Date End Date Josemanuel Davis MD [address] [place] [address] PCP - General Internal Medicine 04/11/24
[2024-11-22 11:15] LABS: Prostate Specific Antigen 1.00 ng/mL (<0.05-4.0)
== END 2024-11-22 09:28 | disposition home or self-care (01) ==
LOC: HO.LAB 09:27
PROVIDERS: PCP Internal Medicine; Visit Provider Urology
DX: E11.69 Type 2 diabetes mellitus with other specified complication (principal); N52.1 Erectile dysfunction due to diseases classified elsewhere
CPT/HCPCS: 36415; 84153

== ENCOUNTER 2024-12-05 09:02 | Outpatient (AMB) | payer MEDICARE, SELFPAY ==
--- NOTE | 2024-12-05 09:02 | MHC.OFFVIS ---
Intake Visit Reasons: 6m/PSA(psa?) Intake Note: Patient is present for 6 MO follow up for ED Labs done 11/22/2024: PSA 1.00 Urology Medication:TADALAFIL Antibiotic Allergy:NONE Blood Thinner:NONE Social Work Program Coordinator Required: No Accompanied by: Self / Same As Patient Allergies No Known Allergies Allergy (Verified 12/05/24 09:04) HPI Comments Details: Maximiliano PERLA is a very pleasant male. He is a patient of Dr Davis. He is seen for the following urologic conditions. - renal cancer - erectile dysfunction in setting of diabetes Telemedicine Evaluation 15 min Consultation Voxound Marisol Video Six-month follow-up PSA 1.0 Did note has no testosterone lab on file Plan lab work Has had some general fatigue and did have questions regarding current testosterone levels Erectile dysfunction in setting of diabetes Progressive Declining quality erection Does have spontaneous erections Given associated diabetes daily tadalafil Comorbidities include diabetes, hypertension, dyslipidemia PSA 11/30 1.0 Continued good response to 10 mg daily with 20 mg on demand Renal lesion: Cryotherapy 08/24 The renal mass was diagnosed incidentally, during evaluation for, abdominal pain - 05/26/15. Imaging included 05/26 , a renal ultrasound, showing a solid mass, 1-2 cm in size, on the right 08/24 cryotherapy Prior treatment(s) included 08/24 cryotherapy Staging of initial cancer T1a. 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 Recent labs include 11/24 Cr 1.05 12/26 Cr 1.1, 07/28 1.1 Follow up imaging includes - 11/23 CT non enhancing 3cm scarring area, 11/24 , a renal ultrasound, normal. XR, normal, 06/28 CXR NAD - 11/25 , a CT (computed tomography) scan of the abdomen/pelvis - contrast no enhancement on scarring on bottom of right kidney - 06/29? chest x-ray normal, 02/26 renal ultrasound scarring of right kidney, - 04/29 renal ultrasound scarring consistent with cryotherapy - 11/28 MRI with contrast no evidence of enhancement - 06/02 renal ultrasound scarring consistent with cryotherapy Planned therapeutic plan- interval imaging [facility] Medical History Malignant neoplasm of right kidney Renal mass Review of Systems Const All systems reviewed & are unremarkable except as noted in HPI and below Reports no additional complaints Resp Reports no additional complaints GI Reports no additional complaints Reports as per HPI Musc Reports no additional complaints Physical Exam Telemedicine evaluation Appropriate responses Regular breathing rate and rhythm HEENT Head: Yes normal to inspection Ears: hearing grossly normal bilaterally Eyes General: appearance normal, both eyes and all related structures Neck Neck: Yes normal visual inspection Chest Chest palpation & inspection: normal inspection of the chest Resp Effort & Inspection: normal respiratory effort and able to speak in complete sentences Telehealth Telehealth Telehealth Platform: Voxound Location of provider rendering services: practice address Location of patient: address on file Patient Identification confirmed using: Name, : Yes Telehealth method: video Patient verbally consented to treatment: Yes Patient verbally consented to billing insurance company: Yes Patient informed of any privacy concerns related to visit: Yes Minutes spent on Phone/Video with Pt.: 15 Assessment & Plan Assessment & Plan (1) Erectile dysfunction associated with type 2 diabetes mellitus: Code(s): E11.69 - Type 2 diabetes mellitus with other specified complication; N52.1 - Erectile dysfunction due to diseases classified elsewhere Category: Medical (2) Renal cancer: Comment: 2018 cryotherapy Code(s): C64.9 - Malignant neoplasm of unspecified kidney, except renal pelvis Category: Medical Plan Testosterone lab work Four week follow-up tele Orders: Orders Testosterone, Total Today E11.69 - Type 2 diabetes mellitus with other specified complication, N52.1 - Erectile dysfunction due to diseases classified elsewhere Medications: Refilled tadalafil 10 mg PO DAILY 90 tabs 1RF sexual activity 90 days E11.69 - Type 2 diabetes mellitus with other specified complication, N52.1 - Erectile dysfunction due to diseases classified elsewhere Patient Instructions: This note is constructed using voice recognition software. While every effort has been made to ensure accuracy motocross racer errors may have been included. Imaging studies, laboratory and physical exam results were discussed and reviewed in detail. No major barriers to patient understanding were identified. An opportunity to ask questions regarding the treatment plan was provided. All questions were answered. The patient expressed understanding and agreement with the above treatment plan. The patient is aware they should contact our office by phone for worsening of their current condition or the appearance of new urologic symptoms. Compliance is encouraged with any medications and followup testing that is ordered. It is a privilege to participate in the urologic care of your patient. If you have any questions or concerns regarding treatment for the above conditions, or other urologic issues, please do not hesitate to contact me. The office telephone contact is [phone]. Sincerely, Dr Mathieu Powell MD, [facility] - Urology Compassionate Specialist Care for the Genitourinary System Coding Level of Care Code Tele Est Pt Level 3 (37920) Complex EM visit Add On G2211 Diagnoses Erectile dysfunction associated with type 2 diabetes mellitus E11.69; N52.1 Renal cancer C64.9
--- OUTSIDE RECORDS SUMMARY | 2024-12-05 09:29 | XMS_ITS | Clinical Summary ---
Author Organization [facility] Address [address] [facility] [address] [place] [address] Phone Care Team Providers Care Election Supervisor Name Role Phone Josemanuel Davis MD Primary Care Provider + [phone] Allergies Active Allergy Reactions Criticality Noted Date Comments Apple Throat Tightness Medium 10/13/2023 Tree Nuts Throat Tightness Medium 10/13/2023 walnut Medications atorvastatin (LIPITOR) 20 MG tablet 08/25/2023 Active metFORMIN (GLUCOPHAGE) 500 MG tablet Take 2 tablets by mouth 2 (two) times a day. 08/09/2023 Active metoprolol succinate (TOPROL-XL) 50 MG 24 hr tablet 08/31/2023 Act daniel omeprazole (PRILOSEC) 20 MG capsule 09/23/2023 Active tadalafiL (CIALIS) 10 MG tablet TAKE 1 TABLET BY MOUTH ONCE DAILY FOR SEXUAL ACTIVITY 09/06/2023 Active valsartan (DIOVAN) 40 MG tablet 10/07/2023 Active Social History Tobacco Use Types Packs/Day Years Used Date Smoking Tobacco: Never Smokeless Tobacco: Never Tobacco Cessation:Counseling Given: Not Answered Alcohol Use Standard Drinks/Week Comments Yes 2 (1 standard drink = 0.6 oz pur e alcohol) Education Answer Date Recorded Are you interested in more education? Not on vicki e 09/04/2022 Are you concerned about learning? Not on file 09/04/2022 No 09/04/2022 No 09/04/2022 Digital Access Answer Date Recorded No 10/05/2022 No 10/05/2022 Reliable internet access at home? Not on file 10/05/2022 Device with a working camera? Not on file Intimate Partner Violence Answer Date R ecorded Are you denied basic needs s uch as food, clothing, or medical care? No 10/17/2023 In the past 12 months have y ou been in a relationship with a person who hurts, threatens, or tries to control you? No 10/17/2023 Are you denied basic needs s uch as food, clothing, or medical care? No 10/17/2023 In the past 12 months have y ou been in a relationship with a person who hurts, threatens, or tries to control you? No 10/17/2023 Sex and Gender Information Value Date Recorded Sex Assigned at Not on file Legal Sex Male 4:10 PM EDT Gender Identity Not on file Sexual Orientation Not on file Last Filed Vital Signs Vital Sign Reading Time Taken Comments Blood Pressure 147/91 10/17/2023 2:13 PM EDT Pulse 77 10/17/2023 2:13 PM EDT Temperature 36 C (96.8 F) 10/17/2023 1:55 PM EDT Respiratory Rate 18 10/17/2023 2:13 PM EDT Oxygen Saturation 96% 10/17/2023 2:13 PM EDT Inhaled Oxygen Concentration - - Weight 108.9 kg (240 lb) 10/13/2023 2:20 PM EDT Height 175.3 cm (5' 9 ) 10/13/2023 2:20 PM EDT Body Mass Index 35.44 10/13/2023 2:20 PM EDT Plan of Treatment Health Maintenance Due Date Last Done Comments Adult Td,Tdap Booster 1959 LIPID PANEL 1959 DEPRESSION SCREENING 1971 HEPATITIS C SCREENING 10/21/1977 HIV ONE-TIME SCREENING (18-65 YEARS) 10/21/1977 COLOGUARD 10/21/2004 COLONOSCOPY 10/21/2004 COLORECTAL CANCER SCREENING 10/21/2004 FIT TEST 10/21/2004 FOBT 10/21/2004 SIGMOIDOSCOPY 10/21/2004 VIRTUAL COLONOSCOPY 10/21/2004 PNEUMOCOCCAL VACCINES (50+ years) (1 of 1 - PCV) 10/21/2009 CREATININE LEVEL 01/01/2024 12/31/2022 POTASSIUM LEVEL 01/01/2024 12/31/2022 COVID-19 VACCINE ( season) 2024 01/28/2022, 10/15/2021, 02/25/2021, Additional history exists SCREENING FOR DIABETES 12/31/2025 12/31/2022 ZOSTER VACCINES Completed 06/08/2018, 03/10/2018 RSV VACCINE Completed 03/15/2023 SMOKING STATUS SCREENING (Once After 26 Yrs) Completed 10/17/2023 HEPATITIS A VACCINES Aged Out No long er eligible based on patient's age to complete this topic HIB VACCINES Aged Out No longer eligi ble based on patient's age to complete this topic MENINGOCOCCAL VACCINES (ACWY) Aged Out No longer eligible based on patient's age to complete this topic MENINGOCOCCAL VACCINES (B) Aged Out N o longer eligible based on patient's age to complete this topic Medical Devices Not on file Procedures Procedure Name Priority Date/Time Associated Diagnosis Comments COMPREHENSIVE METABOLIC PANEL Routine 12/31/2022 9:59 AM EDT RUQ abdominal pain from Last 3 Months or Most Recently Relevant to Health Maintenance Results * (ABNORMAL) Comprehensive metabolic panel (12/31/2022 9:59 AM EDT) SODIUM 141 133 - 146 mmol/L [facility] POTASSIUM 4.7 3.3 - 5.1 mmol/L [facility] CHLORIDE 103 96 - 108 mmol/L [facility] CO2 27 21 - 35 mmol/L [facility] BUN 16 6 - 19 mg/dL [facility] CREATININE 1.00 0.5 - 1.5 mg/dL [facility] GLUCOSE 111(H) 70 - 99 mg/dL [facility] ALBUMIN 4.4 3.9 - 4.8 g/dL [facility] TOTAL PROTEIN 7.2 6.5 - 8.0 g/dL [facility] CALCIUM 9.2 8.4 - 10.3 mg/dL [facility] ALKALINE PHOSPHATASE 68 39 - 117 U/L [facility] TOTAL BILIRUBIN 0.4 0.0 - 1.2 mg/dL [facility] AST 29 0 - 37 U/L [facility] ALT 21 0 - 40 U/L [facility] GLOBULIN 2.8 1 - 4.8 g/dL [facility] EGFR 85 >59 mL/min/1.7 3m2 [facility] Comment:Estimated glomerular filtration rate calculated using the CKD-EPI refit equation. ANION GAP 16 10 - 20 mmol/L [facility] Blood 12/31/2022 9:59 AM EDT 12/31/2022 10:02 AM EDT Danielle MARCELO LAB BLOOD ORDERABLES Fin al Result [facility] [address] [place] [address] from Last 3 Months or Most Recently Relevant to Health Maintenance Insurance [facility] NON NSPG PCP [place] [employer] NON NSPG PCP [facility] CONNECTORCARE [facility] NON NSPG PCP [place] [employer]ARITY CONNE[employer]ARE [facility] NON NSPG PCP [place] [facility] NON NSPG PCP [facility]SPG PCP [facility] Care Teams Election Supervisor Relationship Specialty Start Date End Date Josemanuel Davis MD [address] [place] [address] PCP - General Internal Medicine 09/04/20 Additional Source Comments The information contained in this document represents components of the legal health record. It is not the complete legal health record.[facility]
--- OUTSIDE RECORDS SUMMARY | 2024-12-05 09:29 | XMS_ITS | Clinical Summary ---
Author Organization [facility] Address [address] [place] [address] Care Team Providers Care Enterprise Systems Manager Name Role Phone Josemanuel Davis MD Primary Care Provider Allergies Active Allergy Reactions Criticality Noted Date Comments Apple 01/25/2022 Grapefruit Extract 01/25/2022 Grapefruit fruit Tree Pollen-Black [place] 01/25/2022 WALNUTS Medications aspirin 81 mg EC [...] Surgery Date Site/Laterality Comments HERNIA REPAIR PROCEDURE: [place] REPAIR FIRST ABDOMINAL WALL HERNIA Family History [...] Panel) 04/18/2022 Colorectal Cancer Screening: Colonoscopy 04/18/2022 Hepatitis C Screening 04/18/2022 Social Influencers of Health Screening 04/18/2022 COVID-19 Vaccine ( season) 2024 01/28/2022, 10/15/2021, 02/25/2021, Additional history exists Depression Screening 05/09/2024 Falls Risk Assessment 10/21/2024 Influenza Vaccine (#1) [...] patient's age to complete this topic Insurance [facility] PL[facility] Care Teams Enterprise Systems Manager Relationship Specialty Start Date End Date Josemanuel Davis MD [address] [place] [address] PCP - General Internal Medicine 04/11/24
--- OUTSIDE RECORDS SUMMARY | 2024-12-05 09:29 | XMS_ITS | Clinical Summary ---
Author Organization [facility] Address [address] [place] [address] Care Team Providers Care Cryptographic Technician Name Role Phone Unavailable Primary Care Provider [...] 10/21/2034 Abdominal Aorta Imaging Discontinued HPV Vaccine (No Doses Required) Completed Hep A Aged Out No longer eligi [...]
== END 2024-12-05 10:19 | disposition home or self-care (01) ==
LOC: HO.HUSH 09:02
PROVIDERS: PCP Internal Medicine; Visit Provider Urology
DX: E11.69 Type 2 diabetes mellitus with other specified complication (principal); N52.1 Erectile dysfunction due to diseases classified elsewhere; C64.9 Malignant neoplasm of unspecified kidney, except renal pelvis
CPT/HCPCS: 99213; G2211

== ENCOUNTER 2024-12-12 07:18 | Outpatient (REF) | payer MEDICARE, SELFPAY ==
--- OUTSIDE RECORDS SUMMARY | 2024-12-12 07:20 | XMS_ITS | Clinical Summary ---
Author Organization [facility] Address [address] [place] [address] Care Team Providers Care Chief Accountant Name Role Phone Unavailable Primary Care Provider [...]
--- OUTSIDE RECORDS SUMMARY | 2024-12-12 07:20 | XMS_ITS | Clinical Summary ---
Author Organization [facility] Address [address] [facility] [address] [place] [address] Phone Care Team Providers Care Vending Machine Assembler Name Role Phone Josemanuel Davis MD Primary Care Provider + [phone] Allergies Active Allergy Reactions Criticality Noted Date [...] EDT) SODIUM 141 133 - 146 mmol/L [facility] POTASSIUM 4.7 3.3 - 5.1 mmol/L [facility] CHLORIDE 103 96 - 108 mmol/L [facility] CO2 27 21 - 35 mmol/L [facility] BUN 16 6 - 19 mg/dL [facility] CREATININE 1.00 0.5 - 1.5 mg/dL [facility] GLUCOSE 111(H) 70 - 99 mg/dL [facility] ALBUMIN 4.4 3.9 - 4.8 g/dL [facility] TOTAL PROTEIN 7.2 6.5 - 8.0 g/dL [facility] CALCIUM 9.2 8.4 - 10.3 mg/dL [facility] ALKALINE PHOSPHATASE 68 39 - 117 U/L [facility] TOTAL BILIRUBIN 0.4 0.0 - 1.2 mg/dL [facility] AST 29 0 - 37 U/L [facility] ALT 21 0 - 40 U/L [facility] GLOBULIN 2.8 1 - 4.8 g/dL [facility] EGFR 85 >59 mL/min/1.7 3m2 [facility] Comment:Estimated glomerular filtration rate calculated using the CKD-EPI refit equation. ANION GAP 16 10 - 20 mmol/L [facility] Blood 12/31/2022 9:59 AM EDT 12/31/2022 10:02 AM EDT Danielle MARCELO LAB BLOOD ORDERABLES Fin al Result [facility] [address] [place] [address] from Last 3 Months or Most Recently Relevant to Health Maintenance Insurance [facility] NON NSPG PCP [place] [employer] CONNE[employer] NON [facility]SPG PCP [facility] CONNECTORCARE [facility] NON [facility]SPG PCP S[place] [employer] [facility] NON [facility]SPG PCP [place] [facility] NON [facility]SPG PCP [facility]SPG PCP [facility] Care Teams Vending Machine Assembler Relationship Specialty Start Date End Date Josemanuel Davis MD [address] [place] [address] PCP - General Internal Medicine 09/04/20 Additional Source Comments The information contained in this document represents components of the legal health record. It is not the complete legal health record.[facility]
--- OUTSIDE RECORDS SUMMARY | 2024-12-12 07:20 | XMS_ITS | Clinical Summary ---
Author Organization [facility] Address [address] [place] [address] Care Team Providers Care Wet Machine Tender Name Role Phone Josemanuel Davis MD Primary Care Provider Allergies Active Allergy Reactions Criticality Noted Date Comments Apple 01/25/2022 Grapefruit Extract 01/25/2022 Grapefruit fruit Tree Pollen-Black [place] 01/25/2022 WALNUTS Medications aspirin 81 mg EC [...] Surgery Date Site/Laterality Comments HERNIA REPAIR PROCEDURE: ME REPAIR FIRST ABDOMINAL WALL HERNIA Family History [...] patient's age to complete this topic Insurance [facility] [place] [address] Care Teams Wet Machine Tender Relationship Specialty Start Date End Date Josemanuel Davis MD [address] [place] [address] PCP - General Internal Medicine 04/11/24
== END 2024-12-12 07:19 | disposition home or self-care (01) ==
LOC: HO.LAB 07:18
PROVIDERS: PCP Internal Medicine; Visit Provider Urology
DX: E11.69 Type 2 diabetes mellitus with other specified complication (principal); N52.1 Erectile dysfunction due to diseases classified elsewhere
CPT/HCPCS: 36415; 84403

== ENCOUNTER 2025-01-02 09:05 | Outpatient (AMB) | payer MEDICARE, SELFPAY ==
--- NOTE | 2025-01-02 09:05 | A.OFFVIS_ITS ---
Intake Visit Reasons: 4w testo labs Intake Note: Patient is present for 4 WK follow up for ED Labs done 12/12/2024 : tESTOSTERONE 395 Urology Medication:TADALAFIL Antibiotic Allergy:NONE Blood Thinner:NONE Building Performance Consultant Required: No Accompanied by: Self / Same As Patient Allergies No Known Allergies Allergy (Verified 01/02/25 09:07) HPI Comments Details: Maximiliano PERLA is a very pleasant male. He is a patient of Dr Davis. He is seen for the following urologic conditions. - renal cancer - erectile dysfunction in setting of diabetes Telemedicine Evaluation 15 min Consultation [employer] Marisol Video Has had some general fatigue and did have questions regarding current testosterone levels Borderline testosterone in setting of diabetes Labs - 12/31 395 Discussed testosterone oriental orthodox. Would involve [id number] costs. He will talk this over with his . Approximately 1 dollar day. Schedule follow-up six-month Erectile dysfunction in setting of diabetes Progressive Declining quality erection Does have spontaneous erections Given associated diabetes daily tadalafil Comorbidities include diabetes, hypertension, dyslipidemia PSA 11/30 1.0 Continued good response to 10 mg daily with 20 mg on demand Renal lesion: Cryotherapy 08/24 The renal mass was diagnosed incidentally, during evaluation for, abdominal pain - 05/26/15. Imaging included 05/26 , a renal ultrasound, showing a solid mass, 1-2 cm in size, on the right 08/24 cryotherapy Prior treatment(s) included 08/24 cryotherapy Staging of initial cancer T1a. 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 Recent labs include 11/24 Cr 1.05 12/26 Cr 1.1, 07/28 1.1 Follow up imaging includes - 11/23 CT non enhancing 3cm scarring area, 11/24 , a renal ultrasound, normal. XR, normal, 06/28 CXR NAD - 11/25 , a CT (computed tomography) scan of the abdomen/pelvis - contrast no enhancement on scarring on bottom of right kidney - 06/29? chest x-ray normal, 02/26 renal ultrasound scarring of right kidney, - 04/29 renal ultrasound scarring consistent with cryotherapy - 11/28 MRI with contrast no evidence of enhancement - 06/02 renal ultrasound scarring consistent with cryotherapy Planned therapeutic plan- interval imaging [facility] Medical History Malignant neoplasm of right kidney Renal mass Review of Systems Const Denies chills and Denies fever(s) Card Reports no additional complaints and Denies syncope Resp Denies cough GI Denies abdominal pain and Denies heartburn Reports as per HPI and Denies change in libido Neuro Denies syncope Psych Denies change in libido Endo Denies change in libido Physical Exam Const General: cooperative, healthy appearing, comfortable and no acute distress Orientation/consciousness: patient oriented x3 HEENT Face and sinus: Yes normal facial exam Mouth: moist mucous membranes Neck Neck: Yes normal visual inspection, Yes full ROM and Yes trachea midline Chest Chest palpation & inspection: normal inspection of the chest Resp Effort & Inspection: normal respiratory effort, able to speak in complete sentences and no respiratory distress GI Inspection: Yes normal to inspection Back/Spine/Pelvis Cervical Spine: normal cervical lordosis Thoracic/Lumbar Spine: thoracic and lumbar spine normal to inspection Skin General skin exam: no rashes or lesions noted Neuro General: patient oriented x3, gait normal, tone normal and moves all extremities Extrem General: Yes normal to inspection and Yes capillary refill normal Telehealth Telehealth Telehealth Platform: [employer] Location of provider rendering services: practice address Location of patient: address on file Patient Identification confirmed using: Name, : Yes Telehealth method: video Patient verbally consented to treatment: Yes Patient verbally consented to billing insurance company: Yes Patient informed of any privacy concerns related to visit: Yes Assessment & Plan Assessment & Plan (1) Renal cancer: Comment: 2018 cryotherapy Code(s): C64.9 - Malignant neoplasm of unspecified kidney, except renal pelvis Category: Medical (2) Erectile dysfunction associated with type 2 diabetes mellitus: Code(s): E11.69 - Type 2 diabetes mellitus with other specified complication; N52.1 - Erectile dysfunction due to diseases classified elsewhere Category: Medical (3) Hypogonadism in male: Code(s): E29.1 - Testicular hypofunction Category: Medical Plan Six-month follow-up lab work office Orders: Orders Testosterone, Total 5 Months E29.1 - Testicular hypofunction Lutenizing Hormone 5 Months E29.1 - Testicular hypofunction Patient Instructions: This note is constructed using voice recognition software. While every effort has been made to ensure accuracy manager sql errors may have been included. Imaging studies, laboratory and physical exam results were discussed and reviewed in detail. No major barriers to patient understanding were identified. An opportunity to ask questions regarding the treatment plan was provided. All questions were answered. The patient expressed understanding and agreement with the above treatment plan. The patient is aware they should contact our office by phone for worsening of their current condition or the appearance of new urologic symptoms. Compliance is encouraged with any medications and followup testing that is ordered. It is a privilege to participate in the urologic care of your patient. If you have any questions or concerns regarding treatment for the above conditions, or other urologic issues, please do not hesitate to contact me. The office telephone contact is [phone]. Sincerely, Dr Mathieu Powell MD, [facility] - Urology Compassionate Specialist Care for the Genitourinary System Coding Level of Care Code Tele Est Pt Level 3 (18977) Complex EM visit Add On G2211 Diagnoses Renal cancer C64.9 Erectile dysfunction associated with type 2 diabetes mellitus E11.69; N52.1 Hypogonadism in male E29.1
--- OUTSIDE RECORDS SUMMARY | 2025-01-02 09:31 | XMS_ITS | Clinical Summary ---
Author Organization [facility] Address [address] [facility] [address] [place] [address] Phone Care Team Providers Care Process Control Manager Name Role Phone Josemanuel Davis MD Primary Care Provider + [phone] Allergies Active Allergy Reactions Criticality Noted Date [...] EDT) SODIUM 141 133 - 146 mmol/L [facility] POTASSIUM 4.7 3.3 - 5.1 mmol/L [facility] CHLORIDE 103 96 - 108 mmol/L [facility] CO2 27 21 - 35 mmol/L [facility] BUN 16 6 - 19 mg/dL [facility] CREATININE 1.00 0.5 - 1.5 mg/dL [facility] GLUCOSE 111(H) 70 - 99 mg/dL [facility] ALBUMIN 4.4 3.9 - 4.8 g/dL [facility] TOTAL PROTEIN 7.2 6.5 - 8.0 g/dL [facility] CALCIUM 9.2 8.4 - 10.3 mg/dL [facility] ALKALINE PHOSPHATASE 68 39 - 117 U/L [facility] TOTAL BILIRUBIN 0.4 0.0 - 1.2 mg/dL [facility] AST 29 0 - 37 U/L [facility] ALT 21 0 - 40 U/L [facility] GLOBULIN 2.8 1 - 4.8 g/dL [facility] EGFR 85 >59 mL/min/1.7 3m2 [facility] Comment:Estimated glomerular filtration rate calculated using the CKD-EPI refit equation. ANION GAP 16 10 - 20 mmol/L [facility] Blood 12/31/2022 9:59 AM EDT 12/31/2022 10:02 AM EDT Danielle MARCELO LAB BLOOD ORDERABLES Fin al Result [facility] [address] [place] [address] from Last 3 Months or Most Recently Relevant to Health Maintenance Insurance [facility] NON NSPG PCP [place] [facility] NON NSPG PCP [facility] CONNE[facility]ARE [facility] NON NSPG PCP S[place] [employer] CONNECTORCARE [facility] NON NSPG PCP [place] [facility] NON NSPG PCP [facility]ARE [facility] NON NSPG PCP [facility] Care Teams Process Control Manager Relationship Specialty Start Date End Date Josemanuel Davis MD [address] [place] [address] PCP - General Internal Medicine 09/04/20 Additional Source Comments The information contained in this document represents components of the legal health record. It is not the complete legal health record.[facility]
--- OUTSIDE RECORDS SUMMARY | 2025-01-02 09:31 | XMS_ITS | Encounter Summary ---
Author Organization [facility] Address [address] [facility] [address] [place] [address] Phone Care Team Providers Care Formula Technician Name Role Phone Pcp, Unknown Primary Care Provider Josemanuel Rodriguez MD Primary Care Provider + [phone] Encounter Details Date Type Department Care Team (Latest Contact Info) Description 09/01/2020 Transcribe Orders Virtual Department [address] [place] [address] Viral Barreto MD [address] [place] [address] [email or web address] Pre-operative laboratory examination (Primary Dx) Social History Tobacco Use Types Packs/Day Years Used Date Smoking Tobacco: Never Assessed Sex and Gender Information Value Date Recorded Sex Assigned at Not on file Legal Sex Male 4:10 PM EDT Gender Identity Not on file Sexual Orientation Not on file documented as of this encounter Plan of Treatment Not on file documented as of this encounter Results * COVID-19 PCR Order (09/02/2020 10:15 AM EDT) COVID-19 Comment [id number] [facility] COVID Testing Status Sent to [facility] 09/02/2020 10:1 5 AM EDT 09/02/2020 11:23 AM EDT us Viral Barreto MD BODY FLUIDS AND STOOLS ORDERAB LES Final Result [facility] [address] [place] [address] documented in this encounter Visit Diagnoses Diagnosis Pre-operative laboratory examination- Primary Pre-procedural laboratory examination documented in this encounter Care Teams Formula Technician Relationship Specialty Start Date End Date Pcp, Unknown PCP - General 09/01/20 09/03/20 Josemanuel Davis MD [address] [place] [address] PCP - General Internal Medicine 09/04/20 documented as of this encounter Additional Source Comments The information contained in this document represents components of the legal health record. It is not the complete legal health record.[facility]
--- OUTSIDE RECORDS SUMMARY | 2025-01-02 09:31 | XMS_ITS | Encounter Summary ---
Author Organization [facility] Address [address] [facility] [address] [place] [address] Phone Care Team Providers Care Search Developer Name Role Phone Josemanuel Davis MD Primary Care Provider + [phone] Encounter Details Date Type Department Care Team (Late st Contact Info) Description 10/17/2023 Procedure Pass [facility] Endoscopy Admitting Dept Virtual Department [address] [place] [address] Social History Tobacco Use Types Packs/Day Years Used Date Smoking Tobacco: Never Smokeless Tobacco: Never Alcohol Use Standard Drinks/Week Comments Yes 2 [...] on file documented as of this encounter Visit Diagnoses Not on filedocumented in this encounter Care Teams Search Developer Relationship Specialty Start Date End Date Josemanuel Davis MD [address] [place] [address] PCP - General Internal Medicine 09/04/20 documented as of this encounter Additional Source Comments The information contained in this document represents components of the legal health record. It is not the complete legal health record.[facility]
--- OUTSIDE RECORDS SUMMARY | 2025-01-02 09:31 | XMS_ITS | Clinical Summary ---
Author Organization [facility] Address [address] [place] [address] Care Team Providers Care Quality Assurance/R&D Lab Technician Name Role Phone Josemanuel Davis MD Primary Care Provider [phone] Allergies Active Allergy Reactions Criticality Noted Date Comments Apple 01/25/2022 Grapefruit Extract 01/25/2022 Grapefruit fruit Tree Pollen-Black [place] 01/25/2022 WAL[employer]UTS Medications aspirin 81 mg EC [...] Surgery Date Site/Laterality Comments HERNIA REPAIR PROCEDURE: [place] REPAIR FIRST ABDOMINAL WALL HERNIA Family History [...] patient's age to complete this topic Insurance [facility] Care Teams Quality Assurance/R&D Lab Technician Relationship Specialty Start Date End Date Josemanuel Davis MD [address] [place] [address] PCP - General Internal Medicine 04/11/24
--- OUTSIDE RECORDS SUMMARY | 2025-01-02 09:31 | XMS_ITS | Clinical Summary ---
Author Organization [facility] Address [address] [place] [address] Care Team Providers Care Mate First Name Role Phone Unavailable Primary Care Provider [...]
== END 2025-01-02 10:11 | disposition home or self-care (01) ==
LOC: HO.HUSH 09:05
PROVIDERS: PCP Internal Medicine; Visit Provider Urology
DX: C64.9 Malignant neoplasm of unspecified kidney, except renal pelvis (principal); E11.69 Type 2 diabetes mellitus with other specified complication; N52.1 Erectile dysfunction due to diseases classified elsewhere; E29.1 Testicular hypofunction
CPT/HCPCS: 99213; G2211